=== PATIENT | male | born 1940 | race Hispanic/Latino ===

== ENCOUNTER 2024-03-25 17:45 | Emergency (ER) | payer OTHER, MEDICARE ==
[~2024-03-25] VITALS: Ht 167.6 cm; Wt 61.2 kg
--- NOTE | 2024-03-25 18:52 | NUR ---
OUT OF HOSPITAL DNR FROM [facility]
[2024-03-25 19:03] LABS: APPEARANCE,URINE CLEAR (CLEAR); BILIRUBIN,URINE NEGATIVE (NEGATIVE); COLOR,URINE LIGHT-YELLOW (YELLOW); GLUCOSE, URINE (UA) NEGATIVE (NEGATIVE); KETONES,URINE NEGATIVE (NEGATIVE); LEUKOCYTE ESTERASE ,URINE NEGATIVE Leu/uL (NEGATIVE); NITRATE,URINE NEGATIVE (NEGATIVE); OCCULT BLOOD,URINE NEGATIVE (NEGATIVE); PROTEIN,URINE NEGATIVE (NEGATIVE); UROBILINOGEN,URINE 0.2 mg/dL (0.2-1.0)
[2024-03-25 19:15] LABS: ADD UA MICROSCOPIC NO
--- NOTE | 2024-03-25 19:52 | HMCIMG ---
CT ABDOMEN WITHOUT CONTRAST. CT PELVIS WITHOUT CONTRAST. INDICATION: Evaluation for obstruction TECHNIQUE: Routine transaxial imaging using 5 mm slice thickness through the abdomen and pelvis without the administration of IV contrast. Thin slice reconstructions are also provided. Coronal and sagittal reformatted images acquired for interpretation. CT was performed with one or more of the following dose reduction techniques: Automated exposure control, adjustment of the mA and/or kV according to patient size, or use of iterative reconstruction technique. COMPARISON: None FINDINGS: ON NONCONTRAST IMAGING: ABDOMEN: 2.5 cm smoothly-marginated subcutaneous cyst along the anterior left lower chest wall compatible with sebaceous or epidermal inclusion cyst or other benign lesion. Heart size is normal. Visible lung bases are clear. No abnormal renal calcifications, hydronephrosis, perinephric inflammation, or proximal hydroureter detected. The liver is normal in size and smooth in contour without biliary duct dilation. The spleen is normal in size and attenuation. The gallbladder appears normal. The pancreas appears normal without pancreatic duct dilation. The adrenal glands appear normal. No significant abdominal, retrocrural or retroperitoneal adenopathy noted. No evidence for intra-abdominal free air or organized fluid collection. Migraine aorta PELVIS: Small fat and fluid-containing nonobstructing left inguinal hernia. No abnormal calcifications within the urinary bladder or distal ureters. No evidence for free air or organized pelvic fluid collection. No significant pelvic adenopathy detected. Moderate stool burden. Terminal ileum appears unremarkable. The appendix appears normal. 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 IMPRESSION: Moderate constipation evidence for any acute intra-abdominal or pelvic process, including no evidence for small bowel obstruction. Small fat and fluid-containing nonobstructing left inguinal hernia. Additional minor findings and pertinent negatives as reported.
[2024-03-25] MEDS ORDERED: POLY17PO4 PO (20:00)
--- NOTE | 2024-03-25 20:01 | ERN ---
General Chief Complaint: Other Problems Stated Complaint: MASS ON LEFT GROIN Time Seen by MD: 18:10 Time Seen by Midlevel: 18:10 Source: patient History of Present Illness Initial Comments Patient is an 84-year-old male being brought in by EMS for evaluation of left groin pain. Patient states he was coming from [facility]. Earlier today while he was getting out of bed he noticed a large mass to his left lower quadrant/left groin area. The area was painful. Daughter was at bedside when this occurred and was able to push the mass back into the abdomen. EMS was called for further evaluation. On arrival patient is lying comfortably in bed and has no complaints. He states the pain is no longer there. Daughter at bedside does report constipation for the past two days and they were concerned for a possible bowel obstruction. Patients specifically denies any nausea, vomiting, fever, chills, or any other symptoms at this time. Allergies: Coded Allergies: No Known Allergies (Unverified Allergy, Unknown, 03/25/24) Home Meds Active Scripts Polyethylene Glycol 3350 (Miralax) 17 Gram Powd.pack, 17 GM PO DAILY for constipation, #20 PACKET 0 Refills Prov:GAYLE TALBOT 03/25/24 Past Medical History Past Medical History: Anxiety, Dementia, Vascular Disease, Other Medical History Other: FALLS, ANEMIA, FEMUR FX, Past Surgical History: Unknown ROS Dictation CONSTITUTIONAL: Negative except for HPI HEAD/FACE: Negative except for HPI EENT: Negative except for HPI RESPIRATORY: Negative except for HPI GASTROINTESTINAL/ABDOMINAL: Negative except for HPI GENITOURINARY: Negative except for HPI MUSCULOSKELETAL: Negative except for HPI INTEGUMENTARY: Negative except for HPI NEUROLOGICAL/PSYCH: Negative except for HPI HEMATOLOGIC/LYMPHATIC: Negative except for HPI All Systems Negative, Except as noted above. 13 point review of systems assessed and all negative except for above. Physical Exam Physical Exam Dictation Vital Signs reviewed General Appearance: Alert, oriented x 3, no acute distress, well developed, nourished. Head and Face: non-traumatic. Eyes: PERRL, pink conjunctivas, eyelid no trauma, anterior chamber with arcus senilis. Ears: Pinnas intact and no signs of trauma or erythema ear canals clear and no discharge TM no erythema Nose: No discharge, no bleeding. Oropharynx: Mouth normal, tongue pink, pharynx clear,no erythema, tonsils no exudates, no abscesses noted, mucous membrane moist Neck: Supple, non-tender, no thyromegaly, no masses, no JVD, no bruits Breast:Deferred Chest:No tenderness, no crepitus, no paradoxical movement, no retractions Lungs:Clear, well-ventilated, symmetric, no rales, no wheezing, no rhonchi, no stridor, good breath sounds bilaterally Heart: Regular rate, regular rhythm, no murmur, no gallops Vascular: no peripheral edema, Abdomen: Soft, positive bowel sounds, nondistended, no guarding, nontender, no rebound, no masses no hepatomegaly, no splenomegaly, no Delatorre's sign, hernia to left groin that is easily reducible, no signs of incarceration Rectal: Deferred Genital: Deferred Neurological: Normal speech, motor function intact, sensory function intact Musculoskeletal: Neck nontender, full range of motion, back nontender, full range of motion, Extremities: nontender, full range of motion Skin: Color pink, dry, no turgor, no rash, no lacerations, no abrasions, no contusions. Lymphatic: Deferred Results Laboratory and Microbiology Lab and Micro Result Laboratory Tests Test 03/25/24 18:40 Urine Color LIGHT-YELLOW (YELLOW) Urine Appearance CLEAR (CLEAR) Urine pH 5.0 (5.0-8.0) Urine Specific [place] 1.022 (1.001-1.031) Urine Protein NEGATIVE mg/dL (NEGATIVE) Urine Glucose (UA) NEGATIVE mg/dL (NEGATIVE) Urine Ketones NEGATIVE mg/dL (NEGATIVE) Urine Occult Blood NEGATIVE (NEGATIVE) Urine Nitrate NEGATIVE (NEGATIVE) Urine Bilirubin NEGATIVE mg/dL (NEGATIVE) Urine Urobilinogen 0.2 mg/dL (0.2-1.0) Urine Leukocyte Esterase NEGATIVE Maxwell/uL Labs Reviewed?: Yes MDM MDM: Patient is an 84-year-old male being brought in by EMS for evaluation of left groin pain. Patient states he was coming from [facility]. Joselo toussaint today while he was getting out of bed he noticed a large mass to his left lower quadrant/left groin area. The area was painful. Daughter was at bedside when this occurred and was able to push the mass back into the abdomen. EMS was called for further evaluation. On arrival patient is lying comfortably in bed and has no complaints. He states the pain is no longer there. Daughter at bedside does report constipation for the past two days and they were concerned for a possible bowel obstruction. Patients specifically denies any nausea, vomiting, fever, chills, or any other symptoms at this time. On physical examination patient is in no acute distress. He is lying comfortably in bed. Abdominal examination is remarkable for a left groin hernia that is easily reducible. There are no signs of incarceration or bowel obstruction however a CT scan without contrast was obtained which reveals a left inguinal hernia with no evidence of incarceration. There was no bowel obstruction noted on CT scan. There is large amount of stool burden consistent with constipation. The patient was given MiraLax in the emergency department and will be discharged back to [facility]. Differential diagnosis: Incarcerated hernia, urinary tract infection, bowel obstruction There are no social concerns with this patient. Prescription drug management Prescriptions will include: None Medical management and examination interpretation discussions were had by me with other qualified healthcare professionals as indicated for the patient's care. ED Course Orders Procedure Category Date Status Time Ct Abdomen/Pelvis W/O CT 03/25/24 Resulted Contrast 18:23 Urinalysis Profile LAB 03/25/24 Complete 18:41 Polyethylene Glycol PHA 03/25/24 Complete 3350 (Miralax 3350 1 20:00 Current Medications Medications (Trade) Dose Ordered Sig/Gilberto Route PRN Reason Start Time Stop Time Status Last Admin Dose Admin Polyethylene Glycol (MIRalax 3350 17 GM POWD.PACK) 17 gm ONCE ONCE PO 03/25/24 20:00 03/25/24 20:01 DC Vital Signs Date Time Temp Pulse Resp B/P (MAP) Pulse Ox O2 Delivery O2 Flow Rate FiO2 03/25/24 20:01 97.9 66 16 128/60 98 Room Air* 0 21 03/25/24 18:46 97.9 57 16 130/55 98 Room Air* 0 21 03/25/24 17:53 98.2 58 16 121/64 99 0 [place] [address] [address] IMAGING REPORT Signed PATIENT: ROD TOBAR MR#: [id number] : 1940 SEX: M AGE: 84 LOCATION: [facility] ORDER 1825 STATUS: REG ER REPORT#: [id number] SERVICE 1823 REASON: R/O OBSTRUCTION ORDERING PHYSICIAN: GAYLE TALBOT PROCEDURE: ABD PEL WO - CT ABDOMEN/PELVIS W/O CONTRAST CT ABDOMEN WITHOUT CONTRAST. CT PELVIS WITHOUT CONTRAST. INDICATION: Evaluation for obstruction TECHNIQUE: Routine transaxial imaging using 5 mm slice thickness through the abdomen and pelvis without the administration of IV contrast. Thin slice reconstructions are also provided. Coronal and sagittal reformatted images acquired for interpretation. CT was performed with one or more of the following dose reduction techniques: Automated exposure control, adjustment of the mA and/or kV according to patient size, or use of iterative reconstruction technique. COMPARISON: None FINDINGS: ON NONCONTRAST IMAGING: ABDOMEN: 2.5 cm smoothly-marginated subcutaneous cyst along the anterior left lower chest wall compatible with sebaceous or epidermal inclusion cyst or other benign lesion. Heart size is normal. Visible lung bases are clear. No abnormal renal calcifications, hydronephrosis, perinephric inflammation, or proximal hydroureter detected. The liver is normal in size and smooth in contour without biliary duct dilation. The spleen is normal in size and attenuation. The gallbladder appears normal. The pancreas appears normal without pancreatic duct dilation. The adrenal glands appear normal. No significant abdominal, retrocrural or retroperitoneal adenopathy noted. No evidence for intra-abdominal free air or organized fluid collection. Migraine aorta PELVIS: Small fat and fluid-containing nonobstructing left inguinal hernia. No abnormal calcifications within the urinary bladder or distal ureters. No evidence for free air or organized pelvic fluid collection. No significant pelvic adenopathy detected. Moderate stool burden. Terminal ileum appears unremarkable. The appendix appears normal. 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 IMPRESSION: Moderate constipation evidence for any acute intra-abdominal or pelvic process, including no evidence for small bowel obstruction. Small fat and fluid-containing nonobstructing left inguinal hernia. Additional minor findings and pertinent negatives as reported. DICTATED BY: AMANDA FISHER MD DATE: 03/25/241947 ELECTRONICALLY SIGNED BY: AMANDA FISHER MD DATE: 03/25/241951 DX & DISP Disposition: Discharge Departure Impression: Primary Impression: Inguinal hernia, left Additional Impression: Constipation Condition: Stable Scripts Polyethylene Glycol 3350 (Miralax) 17 Gram Powd.pack 17 GM PO DAILY for constipation, #20 PACKET 0 Refills Prov: GAYLE TALBOT 03/25/24 Referrals: GAYLE ROSARIO MD (PCP) Time of Disposition: 20:00 I have reviewed the case, and I agree with, Diagnosis and Plan I performed the substantive portion of the visit. I have reviewed and personally made and approve the management plan that is documented in the note by myself or the MARY ANN. I acknowledge for responsibility for the patient's management plan. GAYLE TALBOT Mar 25, 2024 20:01
[2024-03-25] MEDS: polyETHYLene GLYCol 3350 17 GM POWD.PACK PO ONE (20:34)
--- NOTE | 2024-03-25 20:45 | NUR ---
[facility] HAS BEEN NOTIFIED OF TRANSFER AND FORMS HAVE BEEN FAXED
--- NOTE | 2024-03-25 21:59 | NUR ---
PER DAUGHTER SHE WILL TAKE RESIDENT BACK TO THE FACILITY IN HER PRIVATE VEHICLE.
[2024-03-25 22:02] VITALS: BP 125/66; PULSE 65; RESP 16; TEMP 97.8; O2SAT 98
== END 2024-03-25 22:03 ==
LOC: EDH 17:45
DX: K40.90 Unilateral inguinal hernia, without obstruction or gangrene, not specified as recurrent (principal); K59.00 Constipation, unspecified; F03.90 Unspecified dementia, unspecified severity, without behavioral disturbance, psychotic disturbance, mood disturbance, and anxiety; F41.9 Anxiety disorder, unspecified; Z79.899 Other long term (current) drug therapy
CPT/HCPCS: 74176; 81003; 99284